=== PATIENT | male | born 2000 | race Hispanic/Latino ===

== ENCOUNTER 2022-04-11 18:52 | Emergency (ER) | payer SELFPAY ==
[2022-04-11] MEDS ORDERED: Mag-Al 1200 mg/1200 mg/30 ML UDCUP ONE (21:16)
[2022-04-11] MEDS ORDERED: Famotidine 20 MG TAB ONE (21:16)
[2022-04-11 21:50] LABS: Troponin I Less than 0.010 ng/mL (< 0.028)
== END 2022-04-11 22:00 | disposition home or self-care (01) ==
LOC: ERS 18:52
DX: R10.13 Epigastric pain (principal); R06.6 Hiccough
CPT/HCPCS: 36415; 71046; 84484; 93005

== ENCOUNTER 2023-02-19 23:14 | Emergency (ER) | payer SELFPAY ==
[2023-02-19 23:52] LABS: #Basophils 0.1 thou/uL (0.0-0.2); #Eosinphils 0.2 thou/uL (0.0-0.7); #Monocytes 0.7 thou/uL (0.11-0.59); #Neutrophils 4.2 thou/uL (1.40-6.50); %Basophils 0.7 % (0.0-1.0); %Eosinophils 2.9 % (0.0-10.0); %Monocytes 9.2 % (0.0-4.0); %Neutrophils 54.8 % (31.0-61.0); Hematocrit 47.3 % (42.0-52.0); Hemoglobin 16.3 g/dL (14.0-18.0); Mean Corpuscular HGB CONC 34.5 g/dL (32.0-36.0); Mean Corpuscular Hemoglobin 30.2 pg (25.0-35.0); Mean Corpuscular Volume 87.6 fl (78.0-98.0); Mean Platelet Volume 9.5 fL (7.4-10.4); Platelet Count 241 10x3/uL (130-400); RBC Distribution Width 11.8 % (11.5-14.5); White Blood Cell (WBC) Count 7.6 10x3/uL (4.8-10.8)
[2023-02-20 00:14] LABS: ALT (SGPT) 36 U/L (8-55); AST (SGOT) 22 U/L (5-34); Albumin 4.7 g/dL (3.5-5.0); Alkaline Phosphatase 87 U/L (50-130); Anion Gap 15 mmol/L (10-20); BUN (Urea Nitrogen) 14 mg/dL (8.9-20.6); Bilirubin, Total 0.5 mg/dL (0.2-1.2); Calc. Creatinine Clearance 0 mL/min (70-130); Calcium 9.8 mg/dL (7.8-10.44); Carbon Dioxide 23 mmol/L (22-29); Chloride 103 mmol/L (98-107); Estimated GFR 81; Globulin 2.7 g/dL (2.4-3.5); Glucose 120 mg/dL (70-105); Potassium 3.9 mmol/L (3.5-5.1); Protein, Total 7.4 g/dL (6.0-8.3); Sodium 137 mmol/L (136-145)
[2023-02-20 00:19] LABS: Troponin I Less than 0.010 ng/mL (< 0.028)
[2023-02-20] MEDS ORDERED: Ketorolac Tromethamine 30 MG/ML VIAL ONE (01:33)
== END 2023-02-20 02:55 | disposition home or self-care (01) ==
LOC: ERS 23:14
DX: R07.9 Chest pain, unspecified (principal)
CPT/HCPCS: 36415; 71045; 80053; 84484; 85025; 93005; 96372; J1885

== ENCOUNTER 2023-02-22 01:01 | Emergency (ER) | payer SELFPAY ==
[2023-02-22] MEDS ORDERED: Meclizine HCl 25 MG TAB ONE (01:53)
[2023-02-22] MEDS ORDERED: Ketorolac Tromethamine 30 MG/ML VIAL ONE (01:53)
== END 2023-02-22 03:43 | disposition home or self-care (01) ==
LOC: ERS 01:01
DX: R42 Dizziness and giddiness (principal)
CPT/HCPCS: 70450; 96372; J1885

== ENCOUNTER 2023-06-03 23:40 | Emergency (ER) | payer SELFPAY ==
[2023-06-04] MEDS ORDERED: predniSONE 20 MG TAB ONE (01:37)
== END 2023-06-04 03:00 | disposition home or self-care (01) ==
LOC: ERS 23:40
DX: R20.0 Anesthesia of skin (principal)
CPT/HCPCS: 70450; J7512

== ENCOUNTER 2023-06-22 00:31 | Emergency (ER) | payer OTHER, SELFPAY | END 2023-06-22 01:14 | disposition home or self-care (01) | LOC: ERS 00:31 | DX: S20.212A Contusion of left front wall of thorax, initial encounter (principal); W19.XXXA Unspecified fall, initial encounter | CPT/HCPCS: 71045 ==